=== PATIENT | male | born 1945 | race Caucasian/White ===

== ENCOUNTER 2017-06-15 08:18 | Day surgery (SDC) | payer MEDICARE ==
[2017-06-15] MEDS ORDERED: Lactated Ringers 1,000 ML IV SCH (09:00)
[2017-06-15] MEDS ORDERED: Propofol 200 MG/20 ML SDV ONE (09:15)
[2017-06-15] MEDS ORDERED: fentaNYL 100 MCG/2 ML SDV ONE (09:15)
[2017-06-15] MEDS ORDERED: Midazolam 1 MG/ML 2 ML SDV ONE (09:16)
[2017-06-15 12:34] VITALS: BP 121/71
--- NOTE | 2017-06-15 14:41 | OR ---
DATE OF PROCEDURE: 06/15/2017 PREOPERATIVE DIAGNOSIS: History of colon polyps. POSTOPERATIVE DIAGNOSES: 1. Diverticulosis. 2. Splenic flexure, colitis. 3. Small transverse colon polyp. 4. History of colon polyps. PROCEDURE PERFORMED: Colonoscopy to the cecum with biopsy of splenic flexure, and biopsy resection of small transverse colon polyp. ANESTHESIA: IV anesthesia with monitored anesthesia care. INDICATION: This 72-year-old white male is referred for a colonoscopy because of a history of colon polyps. He says his last colonoscopic exam was done 3 years ago. I counseled him for the procedure including risks and alternatives, and he gave his informed consent to proceed. DESCRIPTION OF PROCEDURE: The patient was placed in the left lateral decubitus position. IV anesthesia was administered by the Anesthesia Service. Time-out was held. A rectal exam was performed, which was unremarkable. The flexible video Olympus colonoscope was introduced through his anus, up his rectum, and out his colon all way to the cecum. Enroute, we saw a few scattered left-sided diverticula. There was no bleeding or inflammation associated with them. In the splenic flexure, we saw evidence of colitis. We obtained biopsies of this area. In the transverse colon, a small polyp was seen which was removed with the biopsy forceps. The scope withdrawn from the cecum with no other additional lesions noted. The scope was retroflexed in the rectum with the distal rectum appearing unremarkable. The scope was straightened and removed. He tolerated the procedure well. Meng Mcnally MD /[id number] AVNI
== END 2017-06-15 12:35 | disposition home or self-care (01) ==
LOC: JP.SDS 08:18
PROVIDERS: ATTEND Surgery
DX: Z12.11 Encounter for screening for malignant neoplasm of colon (principal); D12.3 Benign neoplasm of transverse colon; K52.9 Noninfective gastroenteritis and colitis, unspecified; Z86.010 Personal history of colon polyps; K57.30 Diverticulosis of large intestine without perforation or abscess without bleeding; E03.9 Hypothyroidism, unspecified; E66.9 Obesity, unspecified; Z68.30 Body mass index [BMI] 30.0-30.9, adult; Z87.891 Personal history of nicotine dependence; Z90.49 Acquired absence of other specified parts of digestive tract; Z98.890 Other specified postprocedural states
CPT/HCPCS: 45380; 88305; J2250; J2704; J3010; J7120

== ENCOUNTER 2020-05-28 08:06 | Day surgery (SDC) | payer MEDICARE ==
[2020-05-28] MEDS ORDERED: Propofol 200 MG/20 ML SDV ONE (08:44)
[2020-05-28] MEDS ORDERED: fentaNYL 100 MCG/2 ML SDV ONE (08:44)
[2020-05-28] MEDS ORDERED: Sodium Chloride 0.9% 1,000 ML IV SCH (08:45)
[2020-05-28 10:36] VITALS: BP 136/86; PULSE 67
--- NOTE | 2020-05-28 14:05 | OR ---
DATE OF PROCEDURE: 05/28/2020 SURGEON: Nilay Mas MD PROCEDURE: Colonoscopy. FINDINGS: 1. Poor colon prep. 2. Inflammation of transverse colon, concerning for colitis (biopsied multiple times using cold biopsy forceps). COMPLICATIONS: None. 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 ANESTHESIA: MAC. PREOPERATIVE DIAGNOSIS: Screening colonoscopy. POSTOPERATIVE DIAGNOSIS: Screening colonoscopy. RISKS: Risks, benefits, alternatives, and limitations including, but not limited to infection, bleeding, and perforation were explained to the patient, who wished to proceed. PROCEDURE IN DETAIL: The patient was placed in left lateral decubitus position. Digital rectal exam was performed without abnormality. Scope was introduced and advanced atraumatically to the ileocecal valve. Scope was brought back through the ascending, transverse, descending colon, and retroflexed. In the transverse colon and a smaller amount in the descending colon, the patient had patulous inflammatory areas. These were not bleeding. These might be prep related and were biopsied using cold biopsy forceps. There was no mass effect or concern for malignancy. No other abnormalities. No abnormalities on retroflexion. The patient tolerated the procedure well. Nilay Mas MD /[id number]
== END 2020-05-28 10:39 | disposition home or self-care (01) ==
LOC: JP.SDS 08:06
PROVIDERS: ATTEND Surgery
DX: Z12.11 Encounter for screening for malignant neoplasm of colon (principal); K51.914 Ulcerative colitis, unspecified with abscess; E11.9 Type 2 diabetes mellitus without complications; K62.89 Other specified diseases of anus and rectum; E66.9 Obesity, unspecified; Z68.38 Body mass index [BMI] 38.0-38.9, adult
CPT/HCPCS: 45380; J2704; J3010; J7030; 88305